=== PATIENT | female | born 2000 | race Asian ===

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

== ENCOUNTER → 2021-04-20 | Outpatient (CLI) | payer OTHER ==
--- NOTE | 2021-04-20 14:54 | RAD ---
EXAM: US BREAST LT 04/20/2021 2:23 PM CLINICAL INDICATION: Left breast pain, firm and tender. COMPARISON: None TECHNIQUE: Grayscale and color Doppler ultrasound images of the left breast in the areas of concern at 10-2 o'clock, 5-7 o'clock, and in the retroareolar region were obtained. FINDINGS: There is dense fibroglandular tissue. No mass or cyst identified. Normal lymph nodes are s een in the left axilla. IMPRESSION: 1. No evidence of malignancy. Normal left breast ultrasound. 2. BI-RADS 2-benign. Recommend clinical follow-up. Recommend screening mammograms beginning at age of 40. Electronically signed by: Chantal Vail MD (04/20/2021 2:51 PM) [id number]
== END ==
LOC: US 14:13
PROVIDERS: ATTEND Obstetrics & Gynecology
DX: N64.89 Other specified disorders of breast (principal)
CPT/HCPCS: 76641